=== PATIENT | male | born 1955 | race American Indian/Alaskan Native ===

== ENCOUNTER 2019-01-02 12:15 | Observation (INO) | payer MEDICARE ==
[2018-12-25 11:02] LABS: Basophils % (Auto) 0.5 % (0.0-1.8); Eosinophils # (Auto) 0.3 K/mm3 (0.0-0.4); Eosinophils % (Auto) 6.2 % (0.0-4.3); Hematocrit 41.7 % (35.5-45.6); Hemoglobin 14.4 gm/dl (11.8-15.2); Lymphocytes % (Auto) 40.1 % (13.4-35.0); Mean Corpuscular HGB Conc 35 % (32-34); Mean Corpuscular Volume 88 fl (84-94); Monocytes # (Auto) 0.5 K/mm3 (0.0-0.8); Platelet Count 154 K/mm3 (140-440); Red Blood Count 4.73 M/mm3 (3.65-5.03); Red Cell Distribution Width 13.6 % (13.2-15.2)
[2018-12-25 11:24] LABS: Alanine Aminotransferase 22 units/L (7-56); Albumin 3.8 g/dL (3.9-5); BUN/Creatinine Ratio 11; Blood Urea Nitrogen 15 mg/dL (9-20); Hemolysis Index 20
--- NOTE | 2018-12-25 12:06 | Anesthesia Consultation ---
Anesthesia Consult and Med Hx Date of service: 12/25/18 - Airway Anesthetic Teeth Evaluation: Good ROM Head & Neck: Adequate Mental/Hyoid Distance: Adequate Mallampati Class: Class III Intubation Access Assessment: Possibly Difficult (large barney) - Pulmonary Exam CTA: Yes - Cardiac Exam Cardiac Exam: RRR (HR 50s. Asymptomatic.) - Pre-Operative Health Status ASA Pre-Surgery Classification: ASA2 Proposed Anesthetic Plan: General - Pulmonary Hx Smoking: Yes (STOPPED X 20 YRS) Hx Respiratory Symptoms: No COPD: No Hx Sleep Apnea: No (JAILYN PRE SCREEN HIGH RISK) - Cardiovascular System Hx Hypertension: Yes (instructed to take amlodipine, carvedilol and to hold lisinopril/HCTZ DOS) Hx Heart Attack/AMI: No Hx Percutaneous Transluminal Coronary Angioplasty (PTCA): No - Central Nervous System CVA: No Hx Back Pain: Yes Hx Psychiatric Problems: Yes (depression) - Gastrointestinal Hx Gastroesophageal Reflux Disease: No - Endocrine Hx Renal Disease: No Hx Liver Disease: No Hx Insulin Dependent Diabetes: No Hx Non-Insulin Dependent Diabetes: No Hx Thyroid Disease: No - Hematic Hx Anemia: No - Other Systems Hx Obesity: Yes - Additional Comments Anesthesia Medical History Comments: No prior GA or FHx anesthetic complications.
[~2019-01-02 12:15] MED LIST: GENTAMICIN/NS 80 MG/100 ML 100 ML IV SCH; LACTATED RINGERS 1,000 ML IV SCH; VANCOMYCIN/NS 1 GM/250 ML 1 GM/250 ML BAG IV SCH; VERSED IV NR
[2019-01-02] MEDS ORDERED: DILAUDID IV PRN (13:04)
--- NOTE | 2019-01-02 13:04 | Anesthesia Day of Surgery ---
Anesthesia Day of Surgery - Day of Surgery Patient Examined: Yes Patient H&P Reviewed: Yes Patient is NPO: Yes
[2019-01-02] MEDS ORDERED: ANCEF/STERILE WATER 2 GM/20 ML IV NR (14:00)
[2019-01-02] MEDS ORDERED: XYLOCAINE MPF 2% ONE (14:23)
[2019-01-02] MEDS ORDERED: DIPRIVAN 10 MG/ML IV ONE (14:23)
[2019-01-02] MEDS ORDERED: SUBLIMAZE ONE (14:23)
[2019-01-02] MEDS ORDERED: NEOSPORIN GU IR ONE ×2 (14:54→15:49)
[2019-01-02] MEDS ORDERED: NACL 0.9% 500 ML 500 ML ONE (15:42)
[2019-01-02] MEDS ORDERED: MARCAINE 0.5% INFILTRATI ONE ×2 (15:42→15:47)
[2019-01-02] MEDS ORDERED: NACL 0.9% IR ONE (15:48)
[2019-01-02] MEDS ORDERED: NACL 0.9% 500 ML IRRIGATION ONE (15:48)
[2019-01-02] MEDS ORDERED: ROBINUL ONE (17:00)
--- NOTE | 2019-01-02 17:30 | Short Stay Summary ---
Short Stay Documentation Date of service: 01/02/19 - History H&P: obtained from office - Allergies and Medications Current Medications: Allergies No Known Allergies Allergy (Verified 12/20/18 10:59) Home Medications Medication Instructions Recorded Confirmed Last Taken Type Aspirin [Adult Aspirin] 81 mg PO DAILY 12/25/18 01/02/19 12/19/18 09:00 History Carvedilol [Coreg] 25 mg PO DAILY 12/25/18 01/02/19 01/02/19 08:00 History Lisinopril/Hydrochlorothiazide 1 each PO DAILY 12/25/18 01/02/19 01/02/19 08:00 History [Zestoretic 10-12.5 mg Tablet] Nugenix 1 tab PO DAILY 12/25/18 01/02/19 01/02/19 08:00 History Tamsulosin [Flomax] 0.4 mg PO QDAY 12/25/18 01/02/19 01/01/19 09:00 History amLODIPine [Norvasc] 10 mg PO DAILY 12/25/18 01/02/19 01/02/19 08:00 History Active Medications Cefazolin Sodium (Ancef/Sterile Water 2 Gm/20 Ml) 2 gm IV PREOP NR Stop: 01/02/19 23:59 Hydromorphone HCl (Dilaudid) 0.5 mg IV Q10MIN PRN PRN Reason: Pain , Severe (7-10) Stop: 01/02/19 23:59 Lactated Ringer's (Lactated Ringers) 1,000 mls @ 100 mls/hr IV DIRECT MARICRUZ Last Admin: 01/02/19 13:00 Dose: 100 mls/hr Documented by: Gentamicin Sulfate/Sodium Chloride (Gentamicin/Ns 80 Mg/100 Ml) 100 mls @ 200 mls/hr IV PREOP MARICRUZ Midazolam HCl (Versed) 2 mg IV PREOP NR Stop: 01/02/19 23:59 Last Admin: 01/02/19 14:37 Dose: 2 mg Documented by: - Brief post op/procedure progress note Date of procedure: 01/02/19 Pre-op diagnosis: ed Post-op diagnosis: other (corporal fibrosis) Procedure: ipp (ams 18+1cm RTE), injection pharmacologic agent, scrotaplasty, fasical patch graft Anesthesia: GETA Surgeon: CHASE BURTON Estimated blood loss: minimal Pathology: list (scrotal skin) Specimen disposition: to lab Condition: stable - Hospital course Hospital course: bactrim, norco, post op info--given to looks good removed clark & wrap home after voids - Disposition Condition at discharge: Stable Short Stay Discharge Plan Follow up with: PATSY PRINCE MD [Primary Care Provider] - 7 Days
[2019-01-02] MEDS ORDERED: NARCAN 0.4 MG/1 ML IV PRN (17:31)
[2019-01-02] MEDS ORDERED: ZOFRAN IV PRN (17:31)
[2019-01-02] MEDS ORDERED: NACL 0.45% 1000 ML 1,000 ML IV SCH (18:00)
[2019-01-02] MEDS: APRESOLINE IV PRN ×2 (18:14→18:37)
[2019-01-02] MEDS ORDERED: APRESOLINE ONE ×2 (18:15→18:38)
--- NOTE | 2019-01-02 18:23 | Consultation ---
History of Present Illness - Reason for Consult Consult date: 01/02/19 Medical Management Requesting physician: CHASE BURTON - History of Present Illness 63 YO Male with Obesity, HTN presents admitted for elective Urologic surgery. Consult placed for medical management. Pt seen and evaluated uopn arrival to his room. Pt resting comfortable. Pt denies fever, chills, CP, palpitations, NVD, Trauma, Productive cough, skin rash, or recent ill contacts. No reported nursing events. Pt denies any complaints at this time. Pain is controlled. Past History Past Medical History: hypertension, other (Obesity) Past Surgical History: Other (Penile implant) Social history: , lives with family. denies: smoking, alcohol abuse, prescription drug abuse Family history: hypertension Medications and Allergies Allergies Allergy/AdvReac Type Severity Reaction Status Date / Time No Known Allergies Allergy Verified 12/20/18 10:59 Home Medications Medication Instructions Recorded Confirmed Last Taken Type Aspirin [Adult Aspirin] 81 mg PO DAILY 12/25/18 01/02/19 12/19/18 09:00 History Carvedilol [Coreg] 25 mg PO DAILY 12/25/18 01/02/19 01/02/19 08:00 History Lisinopril/Hydrochlorothiazide 1 each PO DAILY 12/25/18 01/02/19 01/02/19 08:00 History [Zestoretic 10-12.5 mg Tablet] Nugenix 1 tab PO DAILY 12/25/18 01/02/19 01/02/19 08:00 History Tamsulosin [Flomax] 0.4 mg PO QDAY 12/25/18 01/02/19 01/01/19 09:00 History amLODIPine [Norvasc] 10 mg PO DAILY 12/25/18 01/02/19 01/02/19 08:00 History Active Meds: Active Medications Acetaminophen/Hydrocodone Bitart ([place] 5/325) 2 each PO Q6H PRN PRN Reason: Pain, Moderate (4-6) Amlodipine Besylate (Norvasc) 10 mg PO DAILY MARICRUZ Carvedilol (Coreg) 25 mg PO DAILY MARICRUZ Cefazolin Sodium (Ancef/Sterile Water 2 Gm/20 Ml) 2 gm IV PREOP NR Stop: 01/02/19 23:59 Hydralazine HCl (Apresoline) 10 mg IV Q20M PRN PRN Reason: HTN SBP>170 Last Admin: 01/02/19 18:14 Dose: 10 mg Documented by: Hydrochlorothiazide (Hctz) 12.5 mg PO QDAY [facility] Hydromorphone HCl (Dilaudid) 0.5 mg IV Q10MIN PRN PRN Reason: Pain , Severe (7-10) Stop: 01/02/19 23:59 Lactated Ringer's (Lactated Ringers) 1,000 mls @ 100 mls/hr IV DIRECT MARICRUZ Last Admin: 01/02/19 13:00 Dose: 100 mls/hr Documented by: Gentamicin Sulfate/Sodium Chloride (Gentamicin/Ns 80 Mg/100 Ml) 100 mls @ 200 mls/hr IV PREOP MARICRUZ Sodium Chloride (Nacl 0.45% 1000 Ml) 1,000 mls @ 100 mls/hr IV DIRECT MARICRUZ Cefazolin Sodium (Ancef/Ns 1 Gm/50 Ml) 1 gm in 50 mls @ 100 mls/hr IV Q8H MARICRUZ; Protocol Stop: 01/03/19 07:29 Lisinopril (Zestril) 10 mg PO QDAY [facility] Midazolam HCl (Versed) 2 mg IV PREOP NR Stop: 01/02/19 23:59 Last Admin: 01/02/19 14:37 Dose: 2 mg Documented by: Morphine Sulfate (Morphine) 2 mg IV Q4H PRN PRN Reason: Pain, Moderate (4-6) Naloxone HCl (Narcan 0.4 Mg/1 Ml) 0.1 mg IV Q2MIN PRN PRN Reason: Res Rate </= 8 or 02 SAT < 92% Ondansetron HCl (Zofran) 4 mg IV Q8H PRN PRN Reason: N/V unrelieved by Regblade Tamsulosin HCl (Flomax) 0.4 mg PO QDAY [facility] Review of Systems Constitutional: no weight loss, no weight gain, no fever, no chills Ears, nose, mouth and throat: no ear pain, no ear discharge, no tinnitis, no decreased hearing, no nose pain, no nasal discharge Cardiovascular: no chest pain, no palpitations, no edema Respiratory: no cough, no cough with sputum, no hemoptysis, no shortness of breath, no dyspnea on exertion Gastrointestinal: no nausea, no diarrhea, no change in bowel habits Genitourinary Male: no hematuria, no discharge, no urinary frequency Rectal: no pain, no incontinence Musculoskeletal: no neck pain, no shooting arm pain, no arm numbness/tingling, no low back pain Integumentary: no rash, no pruritis, no redness, no wounds, no jaundice, no boils Neurological: no head injury, no transient paralysis, no paralysis, no parathesias, no numbness Psychiatric: no anxiety, no memory loss, no change in sleep habits Endocrine: no cold intolerance, no heat intolerance, no polyphagia, no excessive thirst, no polydipsia, no polyuria, no nocturia Hematologic/Lymphatic: no easy bruising, no easy bleeding, no lymphadenopathy, no lymphedema Allergic/Immunologic: no urticaria, no allergic rhinitis, no wheezing, no persistent infections, no anaphylaxis, no angioedema Exam - Constitutional Vitals: Temp Pulse Resp BP Pulse Ox 96.9 F L 62 21 201/98 100 01/02/19 17:41 01/02/19 18:15 01/02/19 18:15 01/02/19 18:15 01/02/19 18:15 General appearance: Present: no acute distress, well-nourished - EENT Eyes: Present: PERRL ENT: hearing intact, clear oral mucosa - Neck Neck: Present: supple, normal ROM - Respiratory Respiratory effort: normal Respiratory: bilateral: CTA - Cardiovascular Heart Sounds: Present: S1 & S2. Absent: rub, click - Extremities Extremities: pulses symmetrical, No edema Peripheral Pulses: within normal limits - Abdominal General gastrointestinal: Present: soft, non-tender, non-distended, normal bowel sounds Male genitourinary: Present: normal - Integumentary Integumentary: Present: clear, warm, dry - Musculoskeletal Musculoskeletal: gait normal, strength equal bilaterally - Psychiatric Psychiatric: appropriate mood/affect, intact judgment & insight - Neurologic Neurologic: CNII-XII intact, moves all extremities Results - Labs CBC & Chem 7: 12/25/18 10:28 12/25/18 10:28 Assessment and Plan - Patient Problems (1) HTN (hypertension) Current Visit: Yes Status: Acute Qualifiers: Hypertension type: essential hypertension Qualified Code(s): I10 - Essential (primary) hypertension Plan to address problem: Monitor BP q shift, continue medical management, IV hydralazine prn for SBP>150, pain control (2) Obesity Current Visit: Yes Status: Acute Qualifiers: Body mass index: BMI 32.0-32.9 Plan to address problem: balanced diet, increased physical activity at discharge.
[2019-01-02] MEDS ORDERED: APRESOLINE IV PRN (18:24)
[2019-01-02] MEDS ORDERED: DILAUDID ONE (18:50)
[2019-01-02] MEDS ORDERED: DEMEROL ONE (19:28)
[2019-01-02] MEDS ORDERED: DEMEROL IV PRN (19:35)
--- NOTE | 2019-01-02 20:09 | Post Anesthesia Evaluation ---
- Post Anesthesia Evaluation Patient Participated: Yes Airway Patent: Yes Stable Respiratory Function: Yes Nausea/Vomiting: No Temp > 96.8F: Yes Pain Manageable: Yes Adequeate Hydration: Yes Anesthesia Complications: No Block Receding Appropriately: Not Applicable Patient on Ventilator: No Other Comments: After >1 hr in PACU, patient complained of "feeling cold inside" and was noted to be shivering despite forced air warmer and normal temp. VS stable at preop baseline(hypertension improved with IV antihypertensives), SpO2 99% on RA, pain well controlled, good urine output, no signs of impending sepsis. Administerred demerol for shivering with improvement. Transferred to floor in stable condition.
[2019-01-02] MEDS: MORPHINE IV PRN (20:48)
[2019-01-02] MEDS: NORCO 5/325 PO PRN (22:07)
[2019-01-02] MEDS: ANCEF/NS 1 GM/50 ML 1 GM/50 ML BAG IV SCH (23:27)
[2019-01-03] MEDS: MORPHINE IV PRN (05:25)
[2019-01-03] MEDS: ANCEF/NS 1 GM/50 ML 1 GM/50 ML BAG IV SCH (09:18)
[2019-01-03] MEDS ORDERED: ZESTRIL PO SCH (10:00)
[2019-01-03] MEDS ORDERED: COREG PO SCH (10:00)
[2019-01-03] MEDS ORDERED: NORVASC PO SCH (10:00)
[2019-01-03] MEDS ORDERED: HCTZ PO SCH (10:00)
[2019-01-03] MEDS ORDERED: NON-FORMULARY (Lisinopril/Hydrochlorothiazide [Zestoretic 10-12.5 Mg Tablet] 1 EACH) PO SCH (10:00)
[2019-01-03] MEDS ORDERED: FLOMAX PO SCH (10:00)
[2019-01-03 12:52] VITALS: BP 129/86
[2019-01-03] MEDS: NORCO 5/325 PO PRN (13:08)
--- NOTE | 2019-01-03 14:33 | Progress Note ---
Assessment and Plan Assessment and plan: 63 YO Male with Obesity, HTN presents admitted for elective Urologic surgery. Consult placed for medical management. Pt seen and evaluated uopn arrival to his room. Pt resting comfortable. Pt denies fever, chills, CP, palpitations, NVD, Trauma, Productive cough, skin rash, or recent ill contacts. No reported nursing events. Pt denies any complaints at this time. Pain is controlled. - Patient Problems (1) HTN (hypertension) Current Visit: Yes Status: Acute Qualifiers: Hypertension type: essential hypertension Qualified Code(s): I10 - Essential (primary) hypertension Plan to address problem: Monitor BP q shift, continue medical management, IV hydralazine prn for SBP>150, pain control salt control discussed with the patient's details verbalize. (2) Obesity Current Visit: Yes Status: Acute Qualifiers: Body mass index: BMI 32.0-32.9 Plan to address problem: balanced diet, increased physical activity at discharge. STABLE FOR DISCHARGE FROM MEDICAL [facility]AND [facility]. History Interval history: Patient seen and examined today sitting up in chair in no acute distress. Spouse at bedside. Hospitalist Physical - Physical exam Narrative exam: VITAL SIGNS: Reviewed. GENERAL: The patient appeared well nourished and normally developed, Vital signs as documented. HEAD: No signs of head trauma. EYES: Pupils are equal. Extraocular motions intact. EARS: Hearing grossly intact. MOUTH: Oropharynx is normal. NECK: No adenopathy, no JVD. CHEST: Chest with clear breath sounds bilaterally. No wheezes, rales, or rhonchi. CARDIAC: Regular rate and rhythm. S1 and S2, without murmurs, gallops, or rubs. VASCULAR: No Edema. Peripheral pulses normal and equal in all extremities. ABDOMEN: Soft, non tender and non distended. No rebound or guarding, and no masses palpated. Bowel Sounds normal. MUSCULOSKELETAL: Good range of motion of all major joints. Extremities without clubbing, cyanosis or edema. NEUROLOGIC EXAM: Alert and oriented x 3 No focal sensory or strength deficits. Speech normal. Follows commands. PSYCHIATRIC: Mood normal. SKIN: No rash or lesions. - Constitutional Vitals: Temp Pulse Resp BP Pulse Ox 98.0 F 58 L 18 129/86 100 01/03/19 12:06 01/03/19 12:06 01/03/19 12:06 01/03/19 12:06 01/03/19 12:06 General appearance: Present: no acute distress, well-nourished Results - Labs CBC & Chem 7: 12/25/18 10:28 12/25/18 10:28 Labs: Laboratory Last Values WBC 4.9 K/mm3 (4.5-11.0) 12/25/18 10:28 RBC 4.73 M/mm3 (3.65-5.03) 12/25/18 10:28 Hgb 14.4 gm/dl (11.8-15.2) 12/25/18 10:28 Hct 41.7 % (35.5-45.6) 12/25/18 10:28 MCV 88 fl (84-94) 12/25/18 10:28 MCH 30 pg (28-32) 12/25/18 10:28 MCHC 35 % (32-34) H 12/25/18 10:28 RDW 13.6 % (13.2-15.2) 12/25/18 10:28 Plt Count 154 K/mm3 (140-440) 12/25/18 10:28 Lymph % (Auto) 40.1 % (13.4-35.0) H 12/25/18 10:28 [place] % (Auto) 10.0 % (0.0-7.3) H 12/25/18 10:28 Eos % (Auto) 6.2 % (0.0-4.3) H 12/25/18 10:28 Baso % (Auto) 0.5 % (0.0-1.8) 12/25/18 10:28 Lymph # 2.0 K/mm3 (1.2-5.4) 12/25/18 10:28 [place] # 0.5 K/mm3 (0.0-0.8) 12/25/18 10:28 Eos # 0.3 K/mm3 (0.0-0.4) 12/25/18 10:28 Baso # 0.0 K/mm3 (0.0-0.1) 12/25/18 10:28 Seg Neutrophils % 43.2 % (40.0-70.0) 12/25/18 10:28 Seg Neutrophils # 2.1 K/mm3 (1.8-7.7) 12/25/18 10:28 Sodium 137 mmol/L (137-145) 12/25/18 10:28 Potassium 3.6 mmol/L (3.6-5.0) 12/25/18 10:28 Chloride 101.8 mmol/L (98-107) 12/25/18 10:28 Carbon Dioxide 23 mmol/L (22-30) 12/25/18 10:28 16 mmol/L 12/25/18 10:28 BUN 15 mg/dL (9-20) 12/25/18 10:28 1.4 mg/dL (0.8-1.5) 12/25/18 10:28 Estimated GFR > 60 ml/min 12/25/18 10:28 11 % 12/25/18 10:28 Glucose 105 mg/dL (75-100) H 12/25/18 10:28 Calcium 9.0 mg/dL (8.4-10.2) 12/25/18 10:28 0.50 mg/dL (0.1-1.2) 12/25/18 10:28 AST 21 units/L (5-40) 12/25/18 10:28 ALT 22 units/L (7-56) 12/25/18 10:28 62 units/L (35-129) 12/25/18 10:28 7.2 g/dL (6.3-8.2) 12/25/18 10:28 3.8 g/dL (3.9-5) L 12/25/18 10:28 1.1 % 12/25/18 10:28 Active Medications - Current Medications Current Medications: Generic Name Dose Route Start Last Admin Trade Name Freq PRN Reason Stop Dose Admin Acetaminophen/Hydrocodone Bitart 2 each 01/02/19 17:31 01/03/19 13:08 [place] 5/325 PO 2 each Q6H PRN Administration Pain, Moderate (4-6) Amlodipine Besylate 10 mg 01/03/19 10:00 01/03/19 09:17 Norvasc PO 10 mg DAILY MARICRUZ Administration Carvedilol 25 mg 01/03/19 10:00 Coreg PO DAILY MARICRUZ Hydralazine HCl 10 mg 01/02/19 17:52 01/02/19 18:37 Apresoline IV 10 mg Q20M PRN Administration HTN SBP>170 Hydralazine HCl 10 mg 01/02/19 18:24 Apresoline IV Q6HR PRN Hypertension Hydrochlorothiazide 12.5 mg 01/03/19 10:00 Hctz PO QDAY MARICRUZ Lactated Ringer's 1,000 mls @ 100 mls/hr 01/02/19 06:00 01/02/19 13:00 Lactated Ringers IV 100 mls/hr DIRECT MARICRUZ Administration Gentamicin Sulfate/Sodium Chloride 100 mls @ 200 mls/hr 01/02/19 00:01 Gentamicin/Ns 80 Mg/100 Ml IV PREOP MARICRUZ Sodium Chloride 1,000 mls @ 100 mls/hr 01/02/19 18:00 01/02/19 22:07 Nacl 0.45% 1000 Ml IV 100 mls/hr DIRECT MARICRUZ Administration Lisinopril 10 mg 01/03/19 10:00 Zestril PO QDAY MARICRUZ Morphine Sulfate 2 mg 01/02/19 17:31 01/03/19 05:25 Morphine IV 2 mg Q4H PRN Administration Pain, Moderate (4-6) Naloxone HCl 0.1 mg 01/02/19 17:31 Narcan 0.4 Mg/1 Ml IV Q2MIN PRN Res Rate </= 8 or 02 SAT < 92% Ondansetron HCl 4 mg 01/02/19 17:31 01/02/19 21:59 Zofran IV 4 mg Q8H PRN Administration N/V unrelieved by Fausto Tamsulosin HCl 0.4 mg 01/03/19 10:00 01/03/19 09:18 Flomax PO 0.4 mg QDAY MARICRUZ Administration
--- NOTE | 2019-01-03 19:29 | Operative Report ---
PREOPERATIVE DIAGNOSIS: Erectile dysfunction. POSTOPERATIVE DIAGNOSES: 1. Erectile dysfunction. 2. Bilateral corporal fibrosis. PROCEDURE: 1. Insertion of inflatable penile prosthesis (AMS 18 cm InhibiZone plus 1 cm rear tip computer instructor). 2. Ventral scrotoplasty due to redundant scrotal skin. 3. Intracorporal penile injection of pharmacologic agent. 4. Bilateral corporal patch graft (fascial) secondary to corporal fibrosis -- complicated. SURGEON: Jim Mercedes MD VALVE ASSEMBLER: Hazel Combs. ANESTHESIA: General. ESTIMATED BLOOD LOSS: Minimal. FLUIDS: Crystalloid. COMPLICATIONS: No complications. INDICATIONS: This patient is a 63-year-old gentleman who presented to the office for evaluation of refractory erectile dysfunction to conservative measures. The patient states he stopped smoking in 1998 and has a history of hypertension. He has tried several of the medications, the oral medications for erectile dysfunction. His vacuum erection device has stopped working as well as penile injections stopped working and they were now just painful to inject. We discussed options. He had multiple questions. He did not have a DVD player. I therefore gave him video player to take home and review with his . At that point, there were no other questions. They agreed to proceed with surgical intervention. DESCRIPTION OF PROCEDURE: The patient was taken to the operative suite, placed in a supine position. After adequate general anesthesia, he was prepped and draped in a sterile fashion. Dilute Marcaine was injected into the penis, the corporal body on the right side. Dilute Marcaine was injected into the corporal body on the right side. No obvious curvature could be appreciated or plaque, however, the corporal body did not dilate with fluid injection and this was approximately 50 mL of fluid. Transscrotal incision was made with the Bovie. Sharp dissection was taken down to the corporal bodies. The metal A[place]worth retractor was used for exposure. A 2-0 Vicryl stay sutures were placed in the corporal bodies. Corporotomies were made bilaterally. It was noted on both sides, minimal bleeding of the corporal bodies. Gentle dilation of the corporal bodies were performed. Measurements revealed a total of 19 cm and therefore an 18 cm InhibiZone device was used with a 1 cm rear tip computer instructor. The 100 mL momentary squeeze reservoir was prepped and placed in the retropubic space via the right external ring and 100 mL of saline was inserted. No back pressure could be appreciated. The device was then prepped, placed in the corporal bodies and it appeared to be snug and therefore, I removed the cylinders, dilated the corporal bodies to 20-Telugu and it was very snug. Also, I made a deeper incision into the corporal body to try to get coverage laterally. The cylinders were then placed into the corporal bodies with the aid of a Brody needle. Posterior was seated without difficulty. Right side was closed with 2-0 Vicryl in a running fashion, could not get the corporal tissue to cover all of the cylinder. Similar problem was noted on the left side as well removed. Removed the cylinders and tried to make a deeper cut into the corporal tissue to allow coverage again, a running suture of 2-0 Vicryl once the cylinders were seated and again did not completely cover the cylinders. Inflation of the device, adequate erection could be appreciated due to having a very good erection with the device, so therefore used a cadaveric fascial graft placed over both incisions for coverage. It was secured on to the corporal body with 2-0 Vicryl in interrupted fashion. Throughout the procedure, copious irrigation was performed. Adequate hemostasis achieved. The pump was then placed in the dependent portion of the scrotum and secured into position with a pursestring 2-0 Vicryl. [place] layer was then closed with 2-0 Vicryl in a running fashion. Skin was closed with 3-0 Vicryl in interrupted fashion. Xeroform gauze on the incision, mummy wrap was placed. The patient tolerated the procedure well, was extubated and taken to recovery room in stable condition. He will be observed overnight and go home on Bactrim and [place]. JOB# [id number] [facility]
== END 2019-01-03 13:45 | disposition home or self-care (01) ==
LOC: OR 12:15 → 3B-SURG 17:31
PROVIDERS: ADMIT Urology; ATTEND Urology
DX: N52.01 Erectile dysfunction due to arterial insufficiency (principal); N48.6 Induration penis plastica; I10 Essential (primary) hypertension; E66.9 Obesity, unspecified; Z79.899 Other long term (current) drug therapy; Z71.3 Dietary counseling and surveillance; Z79.82 Long term (current) use of aspirin
CPT/HCPCS: 0200T; 36415; 54401; 80053; 85025; 88305; 96365; 96366; 96375; 96376; C1762; C1813; G0378; J0360; J0690; J1170; J1580; J2175; J2250; J2270; J2405; J2704; J3010; J7030; J7040; J7120